=== PATIENT | male | born 1990 | race Caucasian/White ===

== ENCOUNTER 2025-02-10 18:04 | Emergency (ER) | payer MEDICAID ==
[~2025-02-10] VITALS: Ht 160 cm; Wt 70.0 kg
[2025-02-10 18:11] VITALS: O2SAT 99
[2025-02-10 20:00] LABS: BASOPHILS % 0.4 % (0.0-2.0); EOSINOPHILS % 1.9 % (0.0-5.0); HEMATOCRIT. 44.1 % (42.0-52.0); HEMOGLOBIN. 15.2 g/dL (14.0-18.0); LYMPHOCYTES % 34.4 % (20.0-50.0); MEAN PLATELET VOLUME 7.2 fl (7.4-10.4); MONOCYTES % 7.6 % (2.0-8.0); NEUTROPHILS % 55.7 % (40.0-76.0); PLATELET 365 x1000/uL (130-400); RED BLOOD CELL COUNT 4.78 mill/uL (4.7-6.1); RED CELL DISTRIBUTION WIDTH 13.4 % (11.6-14.6)
[2025-02-10 20:12] LABS: CREATININE 0.9 mg/dL (0.6-1.3); TROPONIN I HIGH SENSITIVITY < 4 ng/L (3.0-53); UREA NITROGEN BLOOD 7 mg/dL (9-23)
[2025-02-10 21:05] VITALS: BP 147/93; PULSE 76; RESP 16; TEMP 37.3; O2SAT 99
== END 2025-02-10 21:05 | disposition home or self-care (01) ==
LOC: ER 18:04
DX: R07.89 Other chest pain (principal)
CPT/HCPCS: 36415; 71045; 80048; 84484; 85025; 93005; 99285